=== PATIENT | female | born 1945 | race Caucasian/White ===

== ENCOUNTER 2016-10-19 06:30 | Day surgery (SDC) | payer OTHER, BC ==
[2016-10-15 14:52] VITALS: BMI 29.9
[2016-10-19] MEDS ORDERED: MIDAZOLAM HCL 2 MG/2 ML SINGLE DOSE VIAL ONE (07:37)
[2016-10-19] MEDS ORDERED: PROPOFOL 20 ML ONE (07:59)
[2016-10-19] MEDS ORDERED: ceFAZolin SODIUM 1 GM VIAL ONE (07:59)
[2016-10-19] MEDS ORDERED: LIDOCAINE HCL/PF 2% SDV 5ML VIAL ONE (07:59)
--- NOTE | 2016-10-19 08:04 | HP ---
Admitting History and Physical - Primary Care Physician PCP: Jeronimo Munguia - Admission Chief Complaint: 3 separate lesions of the scalp History of Present Illness: slowly enlarging chronic scalp lesion History Source: Patient, Medical Record Limitations to Obtaining History: No Limitations - Past Medical History RUG SHAMPOOER: No: Alzheimer's, CVA, Dementia, Migraine, Multiple Sclerosis, Peripheral Neuropathy, Parkinson's, Seizure, Syncope, TIA, Vertigo, Other Cardiovascular: Yes: HTN Pulmonary: No: Asthma, Bronchitis, Cancer, COPD, O2 Dependent, Pneumonia, Previously Intubated, Pulmonary Embolus, Pulmonary Fibrosis, Sleep Apnea, Other Gastrointestinal: Yes: GERD Hepatobiliary: No: Cirrhosis, Cholelithiasis, Cholecystitis, Choledocholithiasis , Hepatitis A, Hepatitis B, Hepatitis C, Other Renal/: No: Renal Failure, Renal Inusuff, BPH, Cancer, Hematuria, Hemodialysis , Neurogenic Bladder, Renal Calculi, UTI, Other Reproductive: No: Ectopic , Endometriosis, Fibroids, PID, Polycystic Ovary Syndrome, Postmenopausal, Other ...: No Heme/Onc: No: Anemia, B12 Deficiency, Bleeding Disorder, Cancer, Current Chemotherapy, Current Radiation Therapy, Hemochromatosis, Hypercoaguable State, Myeloproliferative Synd, Sickle Cell Disease, Sickle Cell Trait, Thrombocytopenia, Other Infectious Disease: No: AIDS, C-Diff, Herpes Zoster, HIV, MRSA, STD's, Tuberculosis, VREF, Other Psych: No: Addictions, Anxiety, Bipolar, Depression, Panic, Psychosis, Schizophrenia, Other Musculoskeletal: No: Bursitis, Chronic low back pain, Hemiparesis, Hemiplegia, Osteoarthritis, Paraplegia, Other Rheumatology: No: Fibromyalgia, Gout, Lupus, Rheumatoid Arthritis, Sarcoidosis, Vasculitis, Other Endocrine: Yes: Diabetes Mellitus Dermatology: Yes: Basal Cell - Past Surgical History Additional Past Surgical History: neck cyst removal - Smoking History Smoking history: Never smoked Aproximately how many cigarettes per day: 0 - Alcohol/Substance Use Hx Alcohol Use: No Home Medications - Allergies Allergies/Adverse Reactions: Allergies Allergy/AdvReac Type Severity Reaction Status Date / Time No Known Allergies Allergy Verified 10/15/16 14:52 - Home Medications Home Medications: Ambulatory Orders Glyburide 5 mg PO BID 10/15/14 Lisinopril [Prinivil -] 5 mg PO HS 10/15/14 Simvastatin [Zocor -] 20 mg PO HS 10/15/14 Janumet 50-1,000 mg Tablet 1 tab PO DAILY 10/15/16 Omeprazole 20 mg PO DAILY 10/15/16 Review of Systems - Review of Systems Constitutional: denies: No Symptoms, Chills, Diaphoresis, Fever, Lethargy, Loss of Appetite, Malaise, Night Sweats, Unintentional Wgt. Loss, Weakness, Other Eyes: denies: No Symptoms, Blind Spots, Blurred Vision, Double Vision, Eye Pain , Floaters, Photophobia, Recent Change in Vision, Other Neck: denies: No Symptoms, Decreased ROM, Lumps, Pain on Movement, Stiffness, Swollen Glands, Tenderness, Other Cardiovascular: denies: No Symptoms, Chest Pain, Edema, Palpitations, Shortness of Breath, Other Respiratory: denies: No Symptoms, Cough, Exercise Intolerance, Hemoptysis, Orthopnea, PND, Snoring, SOB, SOB on Exertion, Wheezing, Other Gastrointestinal: denies: No Symptoms, Abdominal Pain, Bloating, Constipation, Diarrhea, Dysphagia, Indigestion, Melena, Nausea, Rectal Bleeding, Vomiting, Vomiting Blood, Other Genitourinary: denies: No Symptoms, Burning, Discharge, Dysuria, Flank Pain, Frequency, Hematuria, Incontinence, Lesions, Menses, Pain, Testicular Mass, Testicular Pain, Testicular Swelling, Urgency, Vaginal Bleeding, Other Breasts: denies: No Symptoms Reported, See HPI, Breast Implants, Discharge from Nipple, Lumps, Pain, Skin Changes, Other Musculoskeletal: denies: No Symptoms, Back Pain, Crepitus, Decreased ROM, Extremity Pain, Joint Pain, Joint Swelling, Muscle Pain, Muscle Cramps, Muscle Weakness, Other Integumentary: denies: No Symptoms, Blister, Bruising, Change in Color, Eczema, Erythema, Incision, Lesions, Lump, Pallor, Pruritis, Rash, Wound, Other Neurological: denies: No Symptoms, Change in LOC, Change in Speech, Confusion, Dizziness, Headache, Incoordination, Numbness, Parasthesia, Pre-Existing Deficit , Seizure, Syncope, Tremors, Unsteady Gait, Weakness, Other Hematology/Lymphatic: denies: No Symptoms, Easily Bruised, Excessive Bleeding, Swollen Glands, Other Psychiatric: denies: No Symptoms, Altered Sleep Pattern, Anxiety, Depression, Hallucinations, Panic, Paranoia, Suicidal, Other Physical Examination Vital Signs: Vital Signs Temperature 98.1 F 10/19/16 07:26 Pulse Rate 89 10/19/16 07:26 Respiratory Rate 18 10/19/16 07:26 Blood Pressure 137/75 10/19/16 07:26 O2 Sat by Pulse Oximetry (%) Constitutional: Yes: Well Nourished Eyes: Yes: WNL HENT: Yes: Other (3 separate scalp lesions) Cardiovascular: Yes: WNL Respiratory: Yes: WNL Gastrointestinal: Yes: WNL Musculoskeletal: Yes: WNL Edema: No Assessment/Plan 3 scalp lesions for excision in OR. Risks and benefits discussed, all questions answered
[2016-10-19] MEDS ORDERED: LIDOCAINE 1%/EPI 1:100000 (50 ML MULTI DOSE VIAL) ONE ×2 (08:10)
[2016-10-19] MEDS ORDERED: ceFAZolin SODIUM 1 GM VIAL IVPB ONE (08:15)
[2016-10-19] MEDS ORDERED: LIDOCAINE 1%/EPI 1:100000 (50 ML MULTI DOSE VIAL) INF ONE (08:23)
[2016-10-19] MEDS ORDERED: BACITRACIN 15 GM TUBE TOPICAL OINTMENT ONE (08:42)
[2016-10-19] MEDS ORDERED: ACETAMINOPHEN 500 MG TABLET (FP) PO PRN (08:57)
[2016-10-19] MEDS ORDERED: oxyCODONE HCL 5 MG TABLET PO PRN (08:57)
[2016-10-19] MEDS ORDERED: ONDANSETRON 4 MG/2 ML VIAL IVPUSH PRN (08:57)
[2016-10-19] MEDS ORDERED: LACTATED RINGERS SOLUTION 1,000 ML IV SCH (09:00)
[2016-10-19 09:57] VITALS: TEMP 98
[2016-10-19 11:47] VITALS: BP 113/59; PULSE 89
--- NOTE | 2016-10-20 17:55 | PATH ---
Surgical Pathology Report Patient Name: ROSELYN PALMA [facility]. Rec. #: [id number] /Age/Gender: 1945 (Age: 71) / F Account: [id number] Location: [facility] Taken: 10/19/2016 Received: 10/19/2016 Reported: 10/20/2016 Physicians: Ronald Simon M.D. Specimen(s) Received A: LEFT SCALP LESIONS B: RIGHT SCALP LESION C: INFERIOR FRONT SCALP LESION Clinical History Scalp lesions Final Diagnosis A. SCALP LESION, LEFT, EXCISION: PILAR (TRICHILEMMAL) CYST. B. SCALP LESION, RIGHT, EXCISION: PILAR (TRICHILEMMAL) CYST. C. SCALP LESION, INFERIOR FRONT, EXCISION: PILAR (TRICHILEMMAL) CYST. Electronically Signed Srinivasa Boateng M.D. Gross Description A. Received in formalin labeled "left scalp lesion" is a 1.0 x 0.7 x 0.4 cm valles, intact cyst. The specimen is bisected and entirely submitted in one cassette. B. Received in formalin labeled "right scalp lesion" is a 0.8 x 0.6 x 0.4 cm valles, intact cyst. The specimen is bisected and entirely submitted in one cassette. C. Received in formalin labeled "inferior front scalp lesion" is a 0.9 x 0.8 x 0.4 cm valles, focally disrupted cyst. The specimen is bisected and entirely submitted in one cassette. DL/10/19/2016 saudi/10/19/2016
--- NOTE | 2016-10-22 10:31 | OP ---
DATE OF OPERATION: 10/19/2016 PREOPERATIVE DIAGNOSIS: Three subcutaneous cysts of the scalp. SURGEON: Sandra De Los Santos MD POSTOPERATIVE DIAGNOSIS: Three subcutaneous cysts of the scalp. PROCEDURE: Excision of three separate scalp lesions. INDICATIONS FOR THE OPERATION: This is a woman with many years of slowly growing subcutaneous masses of the scalp. PROCEDURE FOLLOWS: Patient was brought to the operating room, and the area over the cysts shaved of some hair. Each lesion was between 1 cm to 1.5 cm in size. One lesion was on the left side of the head, one was anterior and slightly to the right, and another one was on the right side. Then, afterwards, she was prepped and draped in sterile fashion, and the area of surgery was prepped with Betadine. Under fractional anesthesia, 1% lidocaine with 1:100,000 epinephrine was injected into each of the three lesions. The first lesion was excised by using a 15 blade over it. The skin was dissected off a subcutaneous cyst using Smith scissors and the combination of a monopolar cautery and pickup and mosquito forceps. The cyst was dissected out and sent to Pathology. Hemostasis was achieved with monopolar cautery and sutures. Subcutaneous chromic 3-0 was placed and two mattress sutures were placed with 4-0 blue Prolene in order to be able to see the sutures postoperatively in this field of hair. Then, the right lesion was incised and dissection over and around the cyst was performed with a combination of Smith scissors, mosquito clamp, and monopolar cautery. After excising this lesion, it was sent to Pathology, and the subcutaneous was closed with chromic 3-0, and then, three separate mattress sutures with 4-0 Prolene. Then, the anterior, slightly to the right, lesion skin was incised and dissection was carried around and over and under the cyst with Smith scissors, forceps, and monopolar cautery. After removing the cyst, the subcutaneous was closed with chromic, and three separate mattress sutures were placed in this wound. The head area of the prep was cleaned off using saline, and then Bacitracin was placed on each of the separate incisions, and the patient brought to the recovery room in stable condition. SANDRA DE LOS SANTOS M.D. [id number]
== END 2016-10-19 11:40 | disposition home or self-care (01) ==
LOC: JASU-SURG 06:30
PROVIDERS: ATTEND Otolaryngology
PROC: 0HQ0XZZ Repair Scalp Skin, External Approach (ICD-10-PCS; 2016-10-19)
PROC: 0HB0XZX Excision of Scalp Skin, External Approach, Diagnostic (ICD-10-PCS; principal; 2016-10-19 08:00)
DX: L72.11 Pilar cyst (principal)
CPT/HCPCS: 88304-TC; 94760

== ENCOUNTER 2017-04-09 18:34 | Emergency (ER) | payer OTHER, BC ==
[2017-04-09 18:45] VITALS: BP 183/75; PULSE 114; TEMP 99.4; BMI 29.6
[2017-04-09] MEDS ORDERED: ALBUTEROL SO4 2.5/IPRATROPIUM 0.5 INH SOL 3 ML VIAL.NEB. NEB ONE (19:05)
--- NOTE | 2017-04-09 19:12 | PDOC ---
History of Present Illness - General Chief Complaint: Cold Symptoms Stated Complaint: FEVER Time Seen by Provider: 04/09/17 18:54 History Source: Patient Exam Limitations: No Limitations - History of Present Illness Initial Comments: 04/09/17 19:06 recently returned from a cruise to the [facility], and had onset of chills and fevers 2 days ago but is progressively worsened to copious clear runny nose, moist nonproductive cough, sore throat pain, and body aches. Patient states received a flu shot and a pneumonia shot but feels concerned as 10 years ago was hospitalized with a pneumonia. Has taken Tylenol with minimal resolved Timing/Duration: reports: changing over time, getting worse Severity: reports: moderate Associated Symptoms: reports: cough, dizziness, fever/chills, nasal congestion, nasal drainage, sore throat Past History - Travel Traveled outside of the country in the last 30 days: No Close contact w/someone who was outside of country & ill: No - Past Medical History Allergies/Adverse Reactions: Allergies Allergy/AdvReac Type Severity Reaction Status Date / Time No Known Allergies Allergy Verified 04/09/17 18:40 Home Medications: Ambulatory Orders Glyburide 5 mg PO BID 10/15/14 Lisinopril [Prinivil -] 5 mg PO HS 10/15/14 Simvastatin [Zocor -] 20 mg PO HS 10/15/14 Omeprazole 20 mg PO DAILY 10/15/16 Sitagliptin Phos/Metformin HCl [Janumet 50-1,000 mg Tablet] 1 each PO ASDIR Albuterol Sulfate Inhaler - [Ventolin HFA Inhaler -] 1 - 2 inh PO Q4H #1 inhaler 04/09/17 Oseltamivir Phosphate [Tamiflu -] 75 mg PO BID #10 capsule 04/09/17 Anemia: No Asthma: No Cancer: No Cardiac Disorders: No CVA: No COPD: No CHF: No Dementia: No Diabetes: Yes GI Disorders: No Disorders: No HTN: No Hypercholesterolemia: No Kidney Stones: Yes Liver Disease: No Seizures: No Thyroid Disease: No - Surgical History Abdominal Surgery: No Appendectomy: No Cardiac Surgery: No Cholecystectomy: No Lung Surgery: No Neurologic Surgery: No - Suicide/Smoking/Psychosocial Hx Smoking Status: No Smoking History: Never smoked Have you smoked in the past 12 months: No Number of Cigarettes Smoked Daily: 0 Information on smoking cessation initiated: No Hx Alcohol Use: No Drug/Substance Use Hx: No Substance Use Type: None Hx Substance Use Treatment: No Review of Systems - Review of Systems Able to Perform ROS?: Yes Is the patient limited [place] proficient: Yes Constitutional: Yes: Symptoms Reported, See HPI, Fever, Malaise HEENTM: Yes: Symptoms Reported, See HPI Respiratory: Yes: Cough, Wheezing Cardiac (ROS): No: Symptoms Reported ABD/GI: Yes: Symptoms Reported, See HPI, Nausea Integumentary: Yes: Symptoms Reported All Other Systems: Reviewed and Negative *Physical Exam - Vital Signs Last Vital Signs Temp Pulse Resp BP Pulse Ox 99.4 F 114 H 18 183/75 100 04/09/17 18:41 04/09/17 18:41 04/09/17 18:41 04/09/17 18:41 04/09/17 18:41 - Physical Exam General Appearance: Yes: Nourished, Apparent Distress, Mild Distress HEENT: positive: CASSIA, TMs Normal, Pharyngeal Erythema, Tonsillar Erythema, Rhinorrhea. negative: Pharynx Normal Neck: positive: Supple, Lymphadenopathy (R), Lymphadenopathy (L). 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 Patient feels much improved after DuoNeb and will also prescribe Proventil pump. Encouraged to continue conservative measures for symptomatic treatment and will follow up with PMD Tuesday or Tuesday as needed *DC/Admit/Observation/Transfer Diagnosis at time of Disposition: Influenza B - Discharge Dispostion Disposition: HOME Condition at time of disposition: Stable Admit: No - Referrals Referrals: Jeronimo Munguia MD [Primary Care Provider] - - Patient Instructions Printed Discharge Instructions: DI for Viral Upper Respiratory Infection -- Adult Additional Instructions: Rest, drink lots of fluids: Teas, water, soups, Pedialyte Saltwater gargles Steamy showers/seem to face break up mucus Old-fashioned treatments help! Avoid contact with others until fevers and cough resolved as this is very contagious Lots of handwashing and good hygiene Continue [id number] medications for symptomatic relief Tylenol or Motrin for fever and pain Take all of Tamiflu as directed: 1 tab every 12 hours for 5 days 2 puffs of albuterol inhaler 4 times a day for next 2 days then as needed for continued cough and shortness of breath Call Leona tomorrow between 1 PM and 4 PM [phone] for updates Followup with private physician in one to 2 days as needed or if worsening Return to emergency department for worsened symptoms, fevers, dehydration Influenza takes between 5 and 7 days for resolution To not participate in any activity, work, or school until fevers and cough are gone for at least one day - Post Discharge Activity Forms/Work/School Notes: Back to Work
== END 2017-04-09 20:04 | disposition home or self-care (01) ==
LOC: JERFT 18:34
PROC: 3E0F7GC Introduction of Other Therapeutic Substance into Respiratory Tract, Via Natural or Artificial Opening (ICD-10-PCS; principal; 2017-04-09)
DX: J10.1 Influenza due to other identified influenza virus with other respiratory manifestations (principal)
CPT/HCPCS: 87804; 94640; 99281-25

== ENCOUNTER 2017-09-10 06:55 | Emergency (ER) | payer OTHER, BC ==
[2017-09-10 07:15] VITALS: BP 128/64; TEMP 98; BMI 28.3
[2017-09-10 07:46] VITALS: PULSE 82
--- NOTE | 2017-09-10 08:15 | PDOC ---
*Physical Exam - Vital Signs Last Vital Signs Temp Pulse Resp BP Pulse Ox 98 F 82 18 128/64 96 09/10/17 07:10 09/10/17 07:13 09/10/17 07:10 09/10/17 07:10 09/10/17 07:13 Medical Decision Making - Medical Decision Making 09/10/17 08:16 Pt seen by Midlevel Provider under my direct supervision Pt interviewed and examined Ancillary studies reviewed I agree with plan as outlined by Midlevel Provider *DC/Admit/Observation/Transfer - Referrals Referrals: Jeronimo Munguia MD [Primary Care Provider] - - Patient Instructions - Post Discharge Activity
[2017-09-10] MEDS ORDERED: IBUPROFEN 600 MG TABLET (FP) PO ONE ×2 (08:29→08:32)
--- NOTE | 2017-09-10 09:00 | PDOC ---
History of Present Illness - General Chief Complaint: Respiratory Stated Complaint: SORE THROAT,LUNG PAIN/COUGH Time Seen by Provider: 09/10/17 07:58 History Source: Patient Exam Limitations: No Limitations - History of Present Illness Initial Comments: 09/10/17 08:15 72-year-old female presents to the ED with complaints of sore throat and cough for the past 4 days without fever, difficulty breathing, chest pain shortness of breath. Patient states had pneumonia and influenza in April and feels she may have pneumonia. Patient denies recent travel, recent illness, recent change in medications, recent sick contacts. Patient denies change in appetite or change in weight. Timing/Duration: reports: other (4 days) Severity: reports: mild Possible Cause: Yes: occasional episodes Modifying Factors: improves with: coughing Associated Symptoms: reports: cough, sore throat Past History - Travel Traveled outside of the country in the last 30 days: No - Past Medical History Allergies/Adverse Reactions: Allergies Allergy/AdvReac Type Severity Reaction Status Date / Time No Known Allergies Allergy Verified 09/10/17 07:14 Home Medications: Ambulatory Orders Glyburide 5 mg PO BID 10/15/14 Lisinopril [Prinivil -] 5 mg PO HS 10/15/14 Simvastatin [Zocor -] 20 mg PO HS 10/15/14 Omeprazole 20 mg PO DAILY 10/15/16 Sitagliptin Phos/Metformin HCl [Janumet 50-1,000 mg Tablet] 1 each PO ASDIR Albuterol Sulfate Inhaler - [Ventolin HFA Inhaler -] 1 - 2 inh PO Q4H #1 inhaler 04/09/17 Oseltamivir Phosphate [Tamiflu -] 75 mg PO BID #10 capsule 04/09/17 Anemia: No Asthma: No Cancer: No Cardiac Disorders: No CVA: No COPD: No CHF: No Dementia: No Diabetes: Yes GI Disorders: No Disorders: No HTN: No Hypercholesterolemia: No Kidney Stones: Yes Liver Disease: No Seizures: No Thyroid Disease: No Other medical history: osteoarthritis - Surgical History Abdominal Surgery: No Appendectomy: No Cardiac Surgery: No Cholecystectomy: No Lung Surgery: No Neurologic Surgery: No - Suicide/Smoking/Psychosocial Hx Smoking Status: No Smoking History: Never smoked Have you smoked in the past 12 months: No Number of Cigarettes Smoked Daily: 0 Hx Alcohol Use: No Drug/Substance Use Hx: No Substance Use Type: None Hx Substance Use Treatment: No Patient Lives Alone: No Respiratory Specific PMHX - Complaint Specific PMHX Pneumonia: Yes Review of Systems - Review of Systems Able to Perform ROS?: No Constitutional: No: Symptoms Reported HEENTM: Yes: Throat Pain. No: Throat Swelling, Mouth Pain, Difficulty Swallowing Respiratory: Yes: Cough. No: Shortness of Breath, Wheezing Cardiac (ROS): No: Symptoms Reported ABD/GI: No: Symptoms Reported : No: Symptoms Reported Musculoskeletal: No: Symptoms Reported Integumentary: No: Change in Hair/Nails Neurological: No: Symptoms reported *Physical Exam - Vital Signs Last Vital Signs Temp Pulse Resp BP Pulse Ox 98 F 82 18 128/64 96 09/10/17 07:10 09/10/17 07:13 09/10/17 07:10 09/10/17 07:10 09/10/17 07:13 - Physical Exam General Appearance: Yes: Nourished, Appropriately Dressed. No: Apparent Distress HEENT: positive: EOMI, CASSIA, TMs Normal, Pharyngeal Erythema. negative: Tonsillar Exudate, Tonsillar Erythema Neck: positive: Supple. negative: Lymphadenopathy (R), Lymphadenopathy (L) Respiratory/Chest: positive: Lungs Clear, Normal Breath Sounds. negative: Respiratory Distress, Accessory Muscle Use Cardiovascular: positive: Regular Rhythm, Regular Rate. negative: Murmur Gastrointestinal/Abdominal: positive: Soft. negative: Tenderness Extremity: negative: Pedal Edema Integumentary: positive: Normal Color, Warm, Moist Neurologic: positive: Motor Strength 5/5 (ambulatory) ED Treatment Course - RADIOLOGY Radiology Studies Ordered: Category Date Time Status CHEST PA & LAT [RAD] Stat Radiology 09/10/17 08:29 Ordered - Medications Given in the ED: ED Medications Discontinued Medications Generic Name Dose Route Start Last Admin Trade Name Freq PRN Reason Stop Dose Admin Ibuprofen 600 mg 09/10/17 08:29 09/10/17 08:39 Motrin - PO 09/10/17 08:30 600 mg ONCE ONE Administration Medical Decision Making - Medical Decision Making 09/10/17 08:19 Patient with complaints of sore throat and dry hacking cough for the past 4 days without associated symptoms. Patient on exam with mild erythema to the soft palate region concerning for strep. Patient with a chest x-ray based on complaints of cough. Patient offered Motrin for sore throat and was administered. 09/10/17 09:00 Chest x-ray negative. Awaiting strep results. *DC/Admit/Observation/Transfer Diagnosis at time of Disposition: Sore throat, Cough - Discharge Dispostion Disposition: HOME Condition at time of disposition: Good - Referrals Referrals: Jeronimo Munguia MD [Primary Care Provider] - - Patient Instructions Printed Discharge Instructions: Sore Throat Additional Instructions: At this time I recommend taking Motrin 600 mg every 8 hours for discomfort. Eat soft not abrasive foods and advance as tolerated. You may also take Robitussin as needed for your cough. Drink plenty of fluids and return to emergency room if his symptoms worsen. Otherwise follow-up with your primary care physician on as previously scheduled. - Post Discharge Activity
== END 2017-09-10 09:16 | disposition home or self-care (01) ==
LOC: JER 06:55
DX: J02.9 Acute pharyngitis, unspecified (principal); R05 Cough; E11.9 Type 2 diabetes mellitus without complications
CPT/HCPCS: 71046-TC-FY; 87070; 87430; 99282-25